=== PATIENT | male | born 1945 | race Caucasian/White ===

== ENCOUNTER 2018-03-20 09:49 | Emergency (ER) | payer BC | END 2018-03-20 11:40 | disposition home or self-care (01) | LOC: FTE 09:49 | DX: H61.22 Impacted cerumen, left ear (principal); Z87.891 Personal history of nicotine dependence | CPT/HCPCS: 69209; 99283-25 ==

== ENCOUNTER 2018-04-19 09:52 | Emergency (ER) | payer BC | END 2018-04-19 11:58 | disposition home or self-care (01) | LOC: FTE 09:52 | DX: S69.92XA Unspecified injury of left wrist, hand and finger(s), initial encounter (principal); X58.XXXA Exposure to other specified factors, initial encounter; Y92.9 Unspecified place or not applicable | CPT/HCPCS: 73130; 73130-LT; 99283-25 ==